=== PATIENT | female | born 1995 ===

== ENCOUNTER 2018-06-12 19:42 | Emergency (ER) | payer OTHER ==
[2018-06-12 20:39] VITALS: TEMP 98.4
--- NOTE | 2018-06-12 21:12 | ED PDOC ---
HPI: General Adult Time Seen by Provider: 06/12/18 21:09 Chief Complaint (Nursing): Dizziness/Lightheaded Chief Complaint (Provider): dizziness/nosebleed History Per: Patient (23 y/o female here for evaluation of dizziness on and off since Wednesday described as dizziness followed by tingling in fingertips for short periods of time. Notes after dizziness she experienced nosebleed excessive bleeding on Wednesday and then returned today but short period of time. Denies any fvers/chills/etc.) Past Medical History Reviewed: Historical Data, Nursing Documentation, Vital Signs Vital Signs: Last Vital Signs Temp 98.4 F 06/12/18 20:34 Pulse 84 06/12/18 20:34 Resp 16 06/12/18 20:34 BP 134/84 06/12/18 20:34 Pulse Ox 99 06/12/18 20:34 - Family History Family History: States: No Known Family Hx - Allergies Allergies/Adverse Reactions: Allergies Allergy/AdvReac Type Severity Reaction Status Date / Time No Known Allergies Allergy Verified 06/12/18 20:39 Review of Systems ROS Statement: Except As Marked, All Systems Reviewed And Found Negative ENT: Positive for: Other (nosebleed) Neurological: Positive for: Dizziness Physical Exam - Reviewed Nursing Documentation Reviewed: Yes Vital Signs Reviewed: Yes - Physical Exam Appears: Positive for: Well, Non-toxic, No Acute Distress Head Exam: Positive for: ATRAUMATIC, NORMAL INSPECTION, NORMOCEPHALIC Skin: Positive for: Normal Color, Warm, DRY Eye Exam: Positive for: EOMI, Normal appearance, PERRL ENT: Positive for: Normal ENT Inspection Neck: Positive for: Normal, Painless ROM Cardiovascular/Chest: Positive for: Regular Rate, Rhythm Respiratory: Positive for: CNT, Normal Breath Sounds Gastrointestinal/Abdominal: Positive for: Normal Exam, Soft Back: Positive for: Normal Inspection Extremity: Positive for: Normal ROM Neurologic/Psych: Positive for: Alert, Oriented - Laboratory Results Result Diagrams: 06/12/18 21:25 06/12/18 21:25 - ECG O2 Sat by Pulse Oximetry: 99 Disposition - Clinical Impression Clinical Impression: Dizziness, Nosebleed - Patient ED Disposition Is Patient to be Admitted: No - Disposition Referrals: Jack Terry MD [Staff Provider] - Disposition: Routine/Home Disposition Time: 21:52 Condition: FAIR Additional Instructions: PLEASE INCREASE HYDRATION EFFORTS TODAY/TOMORROW. Instructions: Dizziness, Nonvertigo, (DC), Nosebleeds (DC)
[2018-06-12 21:33] LABS: BASO # 0.1 K/uL (0.0-0.2); BASO % 0.6 % (0.0-2.0); EOS # 0.2 K/uL (0.0-0.7); HEMOGLOBIN 13.2 g/dL (12.0-16.0); LYMPH # 3.6 K/uL (1.0-4.3); LYMPH % 36.5 % (20.0-40.0); MEAN CELL VOLUME 97.7 fl (81.0-99.0); MEAN CORPUSCULAR HEMOGLOBIN 31.8 pg (27.0-31.0); MEAN CORPUSCULAR HGB CONC 32.5 g/dL (33.0-37.0); MEAN PLATELET VOLUME 9.4 fl (7.2-11.7); MONO # 0.8 K/uL (0.0-0.8); MONO % 8.1 % (0.0-10.0); NEUT # 5.2 K/uL (1.8-7.0); NEUT % 52.8 % (50.0-75.0); RBC 4.15 Mil/uL (3.80-5.20); RED CELL DISTRIBUTION WIDTH 13.9 % (11.5-14.5); WHITE BLOOD COUNT 9.8 K/uL (4.8-10.8)
[2018-06-12 21:42] LABS: ALB/GLOB RATIO 1.3 (1.0-2.1)
[2018-06-12 21:52] LABS: ALBUMIN 4.4 g/dL (3.5-5.0); ALT/SGPT 31 U/L (9-52); AST/SGOT 26 U/L (14-36); BLOOD UREA NITROGEN 22 mg/dl (7-17); CALCIUM 9.6 mg/dL (8.4-10.2); GFR NON-AFRICAN AMERICAN > 60
[2018-06-12 22:08] VITALS: BP 121/81; PULSE 88; RESP 20; O2SAT 100
--- NOTE | 2018-06-13 10:52 | CARD ---
APPROVED REPORT Date of service: 06/12/2018 EKG Measurement Heart [id number] <Conclusion> Normal sinus rhythm Normal ECG
== END 2018-06-12 22:14 | disposition home or self-care (01) ==
LOC: H.ER 19:42
DX: R42 Dizziness and giddiness (principal); R04.0 Epistaxis